=== PATIENT | female | born 1965 | race Caucasian/White ===

== ENCOUNTER 2018-05-15 09:51 | Observation (INO) | payer SELFPAY ==
[~2018-05-15] VITALS: Ht 154.9 cm; Wt 75.0 kg
[2018-05-15 10:42] LABS: INR 0.99 (0.85-1.17); PROTIME 12.6 SECONDS (11.6-15.0)
[2018-05-15 10:47] LABS: ALBUMIN 3.4 g/dL (3.4-5.0); ALKALINE PHOSPHATASE 87 U/L (46-116); ALT (SGPT) 24 U/L (10-68); BILIRUBIN - TOTAL 0.24 mg/dL (0.2-1.3); CALC OSMOLALITY 289 mosm/kg (275-300); CALCIUM 8.1 mg/dL (8.5-10.1); CARBON DIOXIDE 22.8 mmol/L (21.0-32.0); CHLORIDE - SERUM 107 mmol/L (98-107); GLUCOSE 149 mg/dL (74-106); POTASSIUM - SERUM 3.7 mmol/L (3.5-5.1); PROTEIN - SERUM 7.2 g/dL (6.4-8.2); SODIUM 141 mmol/L (136-145); UREA NITROGEN 28 mg/dL (7-18); eGFR NON AFRICAN AMERICAN 61 mL/min (90-120)
[2018-05-15 10:59] LABS: CKMB 1.4 U/L (0.0-3.6); CREATINE KINASE 115 UL (21-215); PRO BNP 196 pg/mL (0-125)
[2018-05-15 11:04] LABS: TROPONIN-I 0.189 ng/mL (0.000-0.060)
[2018-05-15 11:05] LABS: HEMATOCRIT 36.1 % (36.0-48.0); HEMOGLOBIN 12.5 g/dL (12-16); LYMPHOCYTES 8.8 % (15-50); MCH 30.3 pg (26.0-34.0); MCHC 34.6 g/dL (31.0-37.0); MCV 87.4 fL (80.0-100.0); MEAN PLATELET VOLUME 9.5 fL (7.4-10.4); PLATELET COUNT 217 10x3/uL (130-400); RBC 4.13 10x6/uL (4.00-5.40); RDW 13.8 % (11.5-14.5); WBC 11.2 10x3/uL (4.8-10.8)
[2018-05-15 11:15] LABS: APTT 25.4 SECONDS (22.8-39.4)
[2018-05-15 12:00] VITALS: BP 110/60
[2018-05-15 14:00] VITALS: BP 109/64
[2018-05-15 16:00] VITALS: BP 104/59
[2018-05-15 18:00] VITALS: BP 100/60
--- NOTE | 2018-05-15 20:22 | NUR ---
ARRIVED TO FLOOR VIA WHEELCHAIR, ORIENTED TO UNIT AND PLACED ON TELEMETRY. CALL LIGHT IN REACH. SEE NURSE ASSESSMENT.
--- NOTE | 2018-05-15 20:37 | NUR ---
NON REBREATHER MASKED INITIATED.
[2018-05-15 21:27] LABS: CKMB 3.1 U/L (0.0-3.6); CREATINE KINASE 189 UL (21-215)
[2018-05-15 21:34] LABS: TROPONIN-I 0.416 ng/mL (0.000-0.060)
[2018-05-15 22:35] VITALS: Ht 154.9 cm; Wt 75.0 kg
[2018-05-16] VITALS: BP 92/47
[2018-05-16 04:00] VITALS: BP 94/47
[2018-05-16 05:09] LABS: BASOPHILS 0.3 % (0-2); EOSINOPHILS 0.3 % (0-7); HEMATOCRIT 35.3 % (36.0-48.0); HEMOGLOBIN 11.5 g/dL (12-16); IMMATURE GRANULOCYTES 0.1 % (0-5); LYMPHOCYTES 41.4 % (15-50); MCH 29.1 pg (26.0-34.0); MCHC 32.6 g/dL (31.0-37.0); MEAN PLATELET VOLUME 9.9 fL (7.4-10.4); MONOCYTES 8.1 % (2-11); NEUTROPHILS 49.8 % (40-80); PLATELET COUNT 208 10x3/uL (130-400); RBC 3.95 10x6/uL (4.00-5.40); RDW 14.4 % (11.5-14.5)
[2018-05-16 05:10] LABS: MCV 89.4 fL (80.0-100.0); WBC 6.8 10x3/uL (4.8-10.8)
[2018-05-16 06:09] LABS: ALBUMIN 3.1 g/dL (3.4-5.0); ALKALINE PHOSPHATASE 66 U/L (46-116); ALT (SGPT) 23 U/L (10-68); BILIRUBIN - TOTAL 0.47 mg/dL (0.2-1.3); CALC OSMOLALITY 286 mosm/kg (275-300); CALCIUM 7.9 mg/dL (8.5-10.1); CARBON DIOXIDE 24.5 mmol/L (21.0-32.0); CHLORIDE - SERUM 109 mmol/L (98-107); CKMB 2.9 U/L (0.0-3.6); GLUCOSE 115 mg/dL (74-106); POTASSIUM - SERUM 3.9 mmol/L (3.5-5.1); PROTEIN - SERUM 6.4 g/dL (6.4-8.2); SODIUM 142 mmol/L (136-145); UREA NITROGEN 21 mg/dL (7-18)
[2018-05-16 06:10] LABS: CREATINE KINASE 248 UL (21-215); CREATININE - SERUM 0.7 mg/dL (0.6-1.3); TROPONIN-I 0.562 ng/mL (0.000-0.060); eGFR NON AFRICAN AMERICAN > 90 mL/min (90-120)
--- NOTE | 2018-05-16 07:30 | NUR ---
RECEIVED PT IN BED AAOX4 RESP UNLABORED TELEMETRY INTACT SR 62 NADNOTED
[2018-05-16 08:13] VITALS: BP 96/44
[2018-05-16 11:05] VITALS: BP 132/48
[2018-05-16 12:42] LABS: CKMB 2.4 U/L (0.0-3.6); CREATINE KINASE 248 UL (21-215)
[2018-05-16 12:43] LABS: TROPONIN-I 0.458 ng/mL (0.000-0.060)
[2018-05-16 15:38] VITALS: BP 100/51
--- NOTE | 2018-05-16 17:37 | MORECARE ---
CASE MANAGEMENT DISCHARGE SUMMARY PATIENT: AICHA READ UNIT: [id number] ADM DATE: 05/15/18 AGE: 52 : 63 SEX: F ROOM/BED: D.2117 AUTHOR: MARGOT MENDEZ PHYSICIAN: REFERRING PHYSICIAN: SMOOTH ENAMORADO MD DATE OF SERVICE: 05/16/18 Discharge Plan Patient Name: AICHA READ Facility: [facility]:[place] : 1965 Planned Disposition: Home Anticipated Discharge Date: 05/16/18 Discharge Date: Expected LOS: 1 Initial Reviewer: [email or web address] Initial Review Date: 05/16/2018 Generated: 05/16/18 6:37 pm Patient Name: AICHA READ Page [id number] at [id number] All edits/amendments must be made on the electronic document DICTATION DATE: 05/16/181736 LABEL OPERATOR: MELODY 05/16/181736 RPT#: [id number] DC DATE: STATUS: ADM IN [facility] [address] [place] [address] END OF REPORT
--- NOTE | 2018-05-16 17:49 | NUR ---
REVIEWED DISCHARGE INSTRUCTIONS WITH PT STATES UNDERSTANDING COPY GIVEN DCD SALINE LOCK TO LAC WITH IV CATHETER INTACT SITE FREE OR REDNESS OR EDEMA PT DISCHARGED HOME IN STABLE CONDITION WITH ALL PERSONAL BELONGINGS VIA W/C
== END 2018-05-16 17:52 | disposition home or self-care (01) ==
LOC: D.ER 09:51 → EDBD 09:51 → D.EDHOLD 15:35 → OBSVTIME 15:35 → D.EDHOLD 15:35 → D.M2 19:38
PROVIDERS: Family Medicine; ADMIT Internal Medicine Nephrology; ATTEND Internal Medicine Nephrology
DX: T58.11XA Toxic effect of carbon monoxide from utility gas, accidental (unintentional), initial encounter (principal); R41.0 Disorientation, unspecified; Y92.010 Kitchen of single-family (private) house as the place of occurrence of the external cause; R79.89 Other specified abnormal findings of blood chemistry